=== PATIENT | female | born 1975 | race Caucasian/White ===

== ENCOUNTER 2019-06-13 12:55 | Emergency (ER) | payer BC ==
--- NOTE | 2019-06-13 13:33 | UC ---
Lower Extremity/Ankle HPI - HPI Summary HPI Summary: Left ankle pain, missed a step when going down stairs. Pain outer ankle, and near toes. (had neg Covid test 05/18, cough has resolved). Had ibuprofen. - History of Current Complaint Chief Complaint: UCLowerExtremity Stated Complaint: ANKLE INJURY Time Seen by Provider: 06/13/19 12:56 Hx Obtained From: Patient Severity Currently: Moderate Able to Bear Weight: No - Allergies/Home Medications Allergies/Adverse Reactions: Allergies Allergy/AdvReac Type Severity Reaction Status Date / Time Penicillins Allergy Hives Verified 06/13/19 13:36 Home Medications: Home Medications Escitalopram Oxalate [Lexapro] 10 mg PO DAILY 09/11/12 [History Confirmed ] Ibuprofen TAB* [Motrin TAB* 600 MG] 600 mg PO Q6H PRN 06/13/19 [History Confirmed 06/13/19] buPROPion TAB* [Wellbutrin TAB*] 200 mg PO DAILY 06/13/19 [History Confirmed 01/21] oxyCODONE/Acetamin 5/325 MG* [Percocet 5/325 TAB*] 1 tab PO Q6H PRN 7 Days #28 tab MDD mdd: 4 tabs 06/13/19 [Rx] PMH/Surg Hx/FS Hx/Imm Hx - Additional Past Medical History Additional PMH: no chronic conditions Previously Healthy: Yes - Surgical History Surgical History: None - Family History Known Family History: Positive: Non-Contributory - Social History Lives: With Family Review of Systems All Other Systems Reviewed And Are Negative: Yes Constitutional: Negative: Fatigue Skin: Negative: Bruising Musculoskeletal: Positive: Edema - L ankle Neurological/Mental Status: Negative: Weakness, Paresthesia, Numbness Physical Exam Triage Information Reviewed: Yes Appearance: Well-Appearing Vital Signs Reviewed: Yes Respiratory: Positive: No respiratory distress Musculoskeletal: Positive: Strength Intact - L LE, ROM Limited @ - L akle, Edema @ - significant at L ankle Neurological: Positive: Alert Lower Extremity Course/Dx - Course Course Of Treatment: L ankle pain after fall. XRAY did show displaced fx. discussed w/ ortho environmental services supervisor and we were able to put in CAM w/ crutches. Non weight bearing and we will have her call Ortho Mon. Morning. No neuro deficits on exam today. Opiates for pain, short term. - Differential Dx/Diagnosis Differential Diagnosis/HQI/PQRI: Fracture (Closed), Fracture (Open), Sprain, Strain Provider Diagnosis: Ankle fracture Discharge ED - Sign-Out/Discharge Documenting (check all that apply): Patient Departure All imaging exams completed and their final reports reviewed: Yes - Discharge Plan Condition: Good Disposition: HOME Prescriptions: oxyCODONE/Acetamin 5/325 MG* [Percocet 5/325 TAB*] 1 tab PO Q6H PRN 7 Days #28 tab MDD mdd: 4 tabs PRN Reason: Pain - Severe Patient Education Materials: Foot Fracture in Adults (ED) Additional Instructions: PLease call Ortho Mon. morning to get appointment. - Billing Disposition and Condition Condition: GOOD Disposition: Home
[2019-06-13 13:52] VITALS: BP 104/62
== END 2019-06-13 14:30 | disposition home or self-care (01) ==
LOC: UCEAST 12:55
DX: S92.352A Displaced fracture of fifth metatarsal bone, left foot, initial encounter for closed fracture (principal); X58.XXXA Exposure to other specified factors, initial encounter; Y93.89 Activity, other specified; Y92.9 Unspecified place or not applicable; Z88.0 Allergy status to penicillin
CPT/HCPCS: 99213; G0463

== ENCOUNTER 2019-06-18 06:19 | Day surgery (SDC) | payer BC ==
[~2019-06-18 06:19] MED LIST: Buffered Lidocaine 1% SYRIN* 1 ML/SYRINGE INTRADERM ONE; Lactated Ringers 1000 ML Bag* 1,000 ML IV SCH
[2019-06-18] MEDS ORDERED: Clindamycin 900 MG/D5W BAG(*) 900 MG/50 ML BAG IVPB ONE (06:45)
[2019-06-18] MEDS ORDERED: Buffered Lidocaine 1% SYRIN* 1 ML/SYRINGE INTRADERM ONE (06:45)
[2019-06-18] MEDS ORDERED: Succinylcholine* 20 MG/ML 10 ML VIAL ONE (07:06)
[2019-06-18] MEDS ORDERED: Chloroprocaine 3%* 20 ML VIAL ONE (07:11)
[2019-06-18] MEDS ORDERED: Propofol* 10 MG/ML 20 ML BTL ONE (07:11)
[2019-06-18] MEDS ORDERED: Lidocaine 2% PF * 5 ML VIAL ONE (07:11)
[2019-06-18] MEDS ORDERED: Midazolam* 1 MG/ML 2 ML VIAL (2 MG) ONE (07:11)
[2019-06-18] MEDS ORDERED: Bupivacaine 0.25% SDV* 30 ML ONE (07:14)
[2019-06-18] MEDS ORDERED: EPHEDrine (Pressors)* 50 MG/ML VIAL ONE (08:00)
[2019-06-18] MEDS ORDERED: Ondansetron INJ* 2 MG/ML VIAL ONE (08:01)
[2019-06-18] MEDS ORDERED: oxyCODONE TAB* 5 MG TAB PO PRN (08:05)
[2019-06-18] MEDS ORDERED: Naloxone* 0.4 MG/ML 1 ML VIAL IV PRN (08:05)
[2019-06-18] MEDS ORDERED: Ketorolac INJ* 30 MG/ML 1 ML VIAL IV PRN (08:05)
[2019-06-18] MEDS ORDERED: Acetaminophen TAB* 325 MG PO PRN (08:05)
[2019-06-18] MEDS ORDERED: fentaNYL* 50 MCG/ML 2 ML VIAL (100 MCG VIAL) IV PRN (08:05)
[2019-06-18] MEDS ORDERED: Metoclopramide IV* 5 MG/ML 2 ML VIAL IV PRN (08:05)
[2019-06-18] MEDS ORDERED: Ketorolac INJ* 30 MG/ML 1 ML VIAL ONE (09:03)
[2019-06-18] MEDS ORDERED: Acetaminophen TAB* 325 MG ONE (09:18)
--- NOTE | 2019-06-18 09:37 | OP ---
Operative Report - Blank - Operative Report Date of Operation: 06/18/19 Note: PATIENT: Lashae Bee DATE OF : 1975 DATE OF SURGERY: 06/18/2019 SURGEON: Braxton Roberts MD PHARMACOEPIDEMIOLOGIST: MEGHAN Rodriguez, whos assistance was necessary for positioning, retraction, help with instrumentation, and closure. ANESTHESIOLOGIST: Dr. Stallings PREOPERATIVE DIAGNOSIS: Displaced, comminuted left 5th metatarsal fracture. POSTOPERATIVE DIAGNOSIS: Displaced, comminuted left 5th metatarsal fracture. OPERATION: Left 5th metatarsal fracture open reduction and internal fixation. ANESTHESIA: Spinal IMPLANTS: Arthrex mini-CFS plate and screws TOURNIQUET TIME: Less than one hour, with a well-padded thigh tourniquet at 250 mmHg. SPECIMENS: none ESTIMATED BLOOD LOSS: minimal COMPLICATIONS: none STATUS: Stable from the operating room to the recovery room and then home. INDICATIONS FOR PROCEDURE: Lashae sustained the above injury. Both operative and non operative treatment alternatives were reviewed. Further, the nature and risks of surgery were reviewed in careful detail, in the office as well as the pre-operative holding area. Our discussions regarding the risks of surgery included, but were not limited to, infection, wound problems, nerve injury, neuroma, RSD, persistent symptoms, blood clot, nonunion, malunion, hardware failure, failure of the surgery, and even the remote chance of catastrophic complication. DESCRIPTION OF PROCEDURE: The patient was seen in the preoperative holding unit and informed written consent was obtained. The appropriate extremity was marked. The patient was then brought to the operating room and carefully positioned on the operating room table. Anesthesia was induced. All bony prominences were padded with great care. A chlorhexidine based pre-scrub was performed followed by a chloraprep prep and drape in standard sterile fashion. A surgical safety pause was then conducted in which we confirmed the appropriate patient, extremity, planned procedure, availability of equipment, indication and administration of prophylactic antibiotics, and DVT prophylaxis in the form of a compression boot on the non-surgical extremity. A longitudinal incision was made over the dorsolateral aspect of the fifth metatarsal. Careful dissection was taken down to the level of the bone. The fracture was exposed. Fracture hematoma was removed. The main fracture plane was reduced with pointed reduction clamps and then held provisionally with K wires. I then used a 2.0mm plate from the mini-CFS set and contoured it to the fifth metatarsal. Screws were then placed distally and proximally to hold the plate to bone. A screw was placed perpendicular to the fracture plane as well. The provisional fixation was then removed and final fluoroscopic images were obtained. The wound was then copiously irrigated. The wound was then closed in layers utilizing 3-0 Monocryl and 3-0 nylon. A sterile dressing was then applied followed by a splint with the ankle in neutral position. The patient was then awakened from anesthesia and transferred to the recovery room in stable condition. There were no complications. All needle and sponge counts were correct at the end of the case. ATTESTATION: I attest I was present and scrubbed and performed the critical portions of the procedure myself. POSTOPERATIVE PLAN: The patient will remain [id number] for an anticipated duration of six weeks. Follow up will be in two weeks for likely suture removal and Steri-Strip application. We will plan to transition the patient into a short Aircast boot at two weeks.
[2019-06-18] MEDS ORDERED: oxyCODONE TAB* 5 MG TAB ONE (10:07)
[2019-06-18 11:29] VITALS: BP 123/69
== END 2019-06-18 11:37 | disposition home or self-care (01) ==
LOC: OR 06:19
PROVIDERS: ATTEND Orthopaedic Surgery
DX: S92.352A Displaced fracture of fifth metatarsal bone, left foot, initial encounter for closed fracture (principal); W10.9XXA Fall (on) (from) unspecified stairs and steps, initial encounter; Y92.008 Other place in unspecified non-institutional (private) residence as the place of occurrence of the external cause
CPT/HCPCS: 62323; 76000; 81025; A9270-GY; C1713; J0330; J1885; J2250; J2400; J2405; J2704; J3490